=== PATIENT | male | born 1985 | race Caucasian/White ===

== ENCOUNTER 2023-05-12 16:53 | Emergency (ER) | payer OTHER ==
[2023-05-12] MEDS ORDERED: Albuterol 0.083% 2.5 MG/3 ML Neb Soln NEB ONE (17:25)
[2023-05-12] MEDS ORDERED: Famotidine 20 MG/2 ML SDV IVPUSH ONE (17:25)
[2023-05-12] MEDS ORDERED: Sodium Chloride 0.9% 500 ML IV ONE (17:26)
[2023-05-12] MEDS ORDERED: Dicyclomine 10 MG Cap PO ONE (17:27)
[2023-05-12 18:44] LABS: CORONAVIRUS COVID-19 NAA NEGATIVE (NEGATIVE); INFLUENZA A NAA NEGATIVE (NEGATIVE); RESPIRATORY SYNCYTIAL VIR NAA NEGATIVE (NEGATIVE)
[2023-05-12 19:26] VITALS: BP 123/69; PULSE 80
== END 2023-05-12 19:05 | disposition home or self-care (01) ==
LOC: JD.ED 16:53
DX: T78.40XA Allergy, unspecified, initial encounter (principal); K52.9 Noninfective gastroenteritis and colitis, unspecified; Z88.5 Allergy status to narcotic agent; Z88.8 Allergy status to other drugs, medicaments and biological substances
CPT/HCPCS: 0241U; 94640; 96361; 96374; 99284; A9270; J3490; J7030; J7620-GY

== ENCOUNTER 2024-06-17 19:48 | Emergency (ER) | payer OTHER ==
[2024-06-17 22:06] VITALS: BP 125/85; PULSE 80
[2024-06-17] MEDS: Sulfamethoxazole/Trimethoprim 800-160 MG Tab PO ONE (22:38)
[2024-06-17] MEDS: cefTRIAXone 2 GM, Lidocaine 1% 4.2 ML IM ONE (22:38)
[2024-06-17] MEDS: cefTRIAXone 2 GM Vial ONE (22:39)
== END 2024-06-17 22:48 | disposition home or self-care (01) ==
LOC: JD.ED 19:48
DX: L03.012 Cellulitis of left finger (principal); Z86.16 Personal history of COVID-19; Z87.891 Personal history of nicotine dependence; Z88.8 Allergy status to other drugs, medicaments and biological substances; Z79.899 Other long term (current) drug therapy; W55.01XA Bitten by cat, initial encounter
CPT/HCPCS: 96372; 99283; A9270; J0696; J2003

== ENCOUNTER 2024-06-18 12:59 | Emergency (ER) | payer OTHER ==
[2024-06-18 13:22] VITALS: BP 151/106; PULSE 105
[2024-06-18] MEDS ORDERED: cefTRIAXone 2 GM in Sodium Chloride 0.9% 100 ML IV ONE (13:22)
[2024-06-18] MEDS: cefTRIAXone 2 GM Vial IVPUSH ONE (14:27)
== END 2024-06-18 15:30 | disposition home or self-care (01) ==
LOC: JD.ED 12:59
DX: S61.251A Open bite of left index finger without damage to nail, initial encounter (principal); Z86.16 Personal history of COVID-19; Z88.8 Allergy status to other drugs, medicaments and biological substances; Z79.899 Other long term (current) drug therapy; W55.01XA Bitten by cat, initial encounter
CPT/HCPCS: 96374; 99283; J0696

== ENCOUNTER 2024-10-22 22:00 | Emergency (ER) | payer OTHER ==
[2024-10-22] MEDS ORDERED: Sodium Chloride 0.9% 10 ML Syringe FLUSH PRN (22:23)
[2024-10-22 22:29] LABS: BASOPHILS ABSOLUTE AUTO 0.0 K/mm3 (0.0-0.2); BASOPHILS PERCENT AUTO 0.3 % (0.0-1.0); EOSINOPHILS ABSOLUTE AUTO 0.1 K/mm3 (0.0-0.4); EOSINOPHILS PERCENT AUTO 1.3 % (0.0-6.0); IMMATURE GRAN ABSOLUTE AUTO 0.03 K/mm3 (0.00-0.05); IMMATURE GRAN PERCENT AUTO 0.3 % (0.0-0.4); LYMPHOCYTES ABSOLUTE AUTO 2.5 K/mm3 (1.0-4.8); LYMPHOCYTES PERCENT AUTO 28.0 % (24.0-44.0); MEAN PLATELET VOLUME 10.6 fl (9.4-12.4); MONOCYTES ABSOLUTE AUTO 0.6 K/mm3 (0.0-0.8); MONOCYTES PERCENT AUTO 6.4 % (0.0-8.0); NEUTROPHILS ABSOLUTE AUTO 5.8 K/mm3 (1.8-7.7); NEUTROPHILS PERCENT AUTO 63.7 % (41.0-71.0); NRBC ABSOLUTE 0.00 (0.00-0.02); NRBC PERCENT 0.0 % (0.0-0.2); PLATELET COUNT,PLT 204 K/mm3 (150-400); RED BLOOD CELL COUNT 5.23 M/mm3 (4.52-5.90); WHITE BLOOD CELL COUNT,WBC 9.08 K/mm3 (3.9-11.3)
[2024-10-22 22:49] LABS: A/G RATIO 1.2 (1-2); ALANINE AMINOTRANSFERASE,ALT 26 U/L (16-63); ASPARTATE AMNIOTRANSFERASE,AST 29 U/L (15-37); BILIRUBIN TOTAL 0.3 mg/dL (0.2-1.0); BLOOD UREA NITROGEN,BUN 18 mg/dL (7-18); CARBON DIOXIDE,CO2 31 mEq/L (21-32); CHLORIDE,CL 105 mEq/L (98-107); CREATININE 0.9 mg/dL (0.7-1.3); ESTIMATED GFR 111 mL/min (>60); GLUCOSE RANDOM 111 mg/dL (70-99); POTASSIUM,K 4.2 mEq/L (3.5-5.1); PROTEIN TOTAL,TP 7.4 g/dl (6.4-8.2); SODIUM,NA 142 mEq/L (136-145); TROPONIN I HIGH SENSITIVITY 7 pg/mL (<=76)
[2024-10-23 00:10] LABS: APPEARANCE,URINE CLEAR (Clear); GLUCOSE,URINE NEGATIVE (Negative); OCCULT BLOOD,URINE NEGATIVE (Negative)
[2024-10-23] MEDS: Alum Hydrox/Mag Hydrox/Simeth 30 ML, Lidocaine 2% 15 ML PO ONE (00:18)
[2024-10-23] MEDS: Iopamidol 755 Mg/ML 100 ML Bottle IVPUSH ONE (00:20)
[2024-10-23 01:58] LABS: EPITHELIAL CELLS,URINE 0-5 /hpf (0-5)
[2024-10-23 02:25] VITALS: BP 164/103; PULSE 59
== END 2024-10-23 02:15 | disposition home or self-care (01) ==
LOC: JD.ED 22:00
DX: I10 Essential (primary) hypertension (principal); Z91.148 Patient's other noncompliance with medication regimen for other reason; Z88.8 Allergy status to other drugs, medicaments and biological substances; Z79.899 Other long term (current) drug therapy; Z86.16 Personal history of COVID-19
CPT/HCPCS: 36415; 71045; 71275; 76705; 80053; 81001; 83690; 84484; 85025; 93005; 96360; 99285; A9270; J7030; Q9967